=== PATIENT | male | born 1995 ===

== ENCOUNTER 2017-04-21 16:56 | Emergency (ER) | payer OTHER ==
[2017-04-21 17:11] VITALS: BP 124/70; PULSE 64; RESP 18; TEMP 98.1; O2SAT 97
--- NOTE | 2017-04-21 17:51 | ED PDOC ---
HPI: CCC, URI, Sore Throat Time Seen by Provider: 04/21/17 17:13 Chief Complaint (Nursing): Flu-like Symptoms Chief Complaint (Provider): Flu-like Symptoms History Per: Patient History/Exam Limitations: no limitations Onset/Duration Of Symptoms: Days (x3) Current Symptoms Are (Timing): Still Present Associated Symptoms: Cough Additional Complaint(s): Edward Pineda is a 21-year-old male who presents to the emergency department complaining of a headache with associated body aches and subjective fever, for 3 days. Patient also reports having a dry cough. He has been taking Acetaminophen without relief. Patient denies any associated sore throat, nausea , vomiting, or diarrhea. PMD: None Past Medical History Reviewed: Historical Data, Nursing Documentation, Vital Signs Vital Signs: Last Vital Signs Temp 98.1 F 04/21/17 17:08 Pulse 64 04/21/17 17:08 Resp 18 04/21/17 17:08 BP 124/70 04/21/17 17:08 Pulse Ox 97 04/21/17 18:54 - Medical History PMH: No Chronic Diseases - Family History Family History: States: Unknown Family Hx - Social History Current smoker - smoking cessation education provided: No Alcohol: None Drugs: Denies - Home Medications Home Medications: Ambulatory Orders Medication Instructions Recorded Albuterol HFA [Ventolin HFA 90 1 puff IH ASDIR #1 unit 04/21/17 mcg/actuation (8 g)] Benzonatate 200 mg PO TID PRN #20 capsule 04/21/17 Levofloxacin [Levaquin] 500 mg PO DAILY #7 tablet 04/21/17 - Allergies Allergies/Adverse Reactions: Allergies Allergy/AdvReac Type Severity Reaction Status Date / Time No Known Allergies Allergy Verified 08/30/15 22:23 Review of Systems ROS Statement: Except As Marked, All Systems Reviewed And Found Negative Constitutional: Positive for: Fever (subjective), Other (body aches) ENT: Negative for: Nose Congestion, Throat Pain Respiratory: Positive for: Cough (dry). Negative for: Sputum Gastrointestinal: Negative for: Nausea, Vomiting, Abdominal Pain, Diarrhea Neurological: Positive for: Headache Physical Exam - Reviewed Nursing Documentation Reviewed: Yes Vital Signs Reviewed: Yes - Physical Exam Appears: Positive for: Non-toxic, No Acute Distress Head Exam: Positive for: ATRAUMATIC, NORMAL INSPECTION, NORMOCEPHALIC Skin: Positive for: Normal Color Eye Exam: Positive for: Normal appearance ENT: Positive for: Tonsillar Swelling. Negative for: Pharyngeal Erythema, Tonsillar Exudate Neck: Positive for: Normal, Supple Cardiovascular/Chest: Positive for: Regular Rate, Rhythm Respiratory: Positive for: Normal Breath Sounds. Negative for: Accessory Muscle Use, Wheezing, Respiratory Distress Gastrointestinal/Abdominal: Positive for: Normal Exam, Soft. Negative for: Tenderness Back: Positive for: Normal Inspection. Negative for: Vertebral Tenderness Neurologic/Psych: Positive for: Alert, Oriented - ECG O2 Sat by Pulse Oximetry: 97 (RA) Pulse Ox Interpretation: Normal - Other Rad CXR X-Ray: Interpreted by Me, Viewed By Me X-Ray Interpretation: VIVIANA infiltrate Medical Decision Making Medical Decision Making: Initial Impression: 21 year old male with flu-like symptoms Time: 17:51 Initial Plan: --Tylenol 975 mg PO --Motrin 600 mg PO --Throat culture --Influenza A B --Rapid strep test --Will obtain chest x-ray PA reviewed labs, flu and strep are negative. Chest x-ray demonstrates left upper lobe infiltrate. Patient given prescriptions for Levaquin, Tessalon Perles and Ventolin inhaler. He was instructed to continue with Tylenol and Motrin for fever control and body aches. Advise follow-up in 1-2 days in clinic or return to ED any time if acutely worse. Scribe Attestation: Documented by Maryann Arzola, acting as a scribe for Kathya Uribe PA-C Provider Scribe Attestation: All medical record entries made by the Scribe were at my direction and personally dictated by me. I have reviewed the chart and agree that the record accurately reflects my personal performance of the history, physical exam, medical decision making, and the department course for this patient. I have also personally directed, reviewed, and agree with the discharge instructions and disposition. Disposition - Clinical Impression Clinical Impression: Pneumonia - Patient ED Disposition Is Patient to be Admitted: No Counseled Patient/Family Regarding: Studies Performed, Diagnosis, Need For Followup, Rx Given - Disposition Referrals: [facility] [Outside] Disposition: Routine/Home Disposition Time: 19:19 Condition: STABLE Additional Instructions: Take [id number] Tylenol and Motrin for body aches and fever. Drink plenty of fluids. Take prescription medications as directed. Follow-up in one to 2 days with clinic or return to emergency department any time if acutely worse. Prescriptions: Albuterol HFA [Ventolin HFA 90 mcg/actuation (8 g)] 1 puff IH ASDIR #1 unit Benzonatate 200 mg PO TID PRN #20 capsule PRN Reason: Cough Levofloxacin [Levaquin] 500 mg PO DAILY #7 tablet Instructions: Community Acquired Pneumonia (ED) Forms: [facility] (Setswana), Meludia (Irish), [facility] ED School /Work Excuse Print Language: KISWAHILI
--- NOTE | 2017-04-22 13:14 | RAD ---
HISTORY: cough COMPARISON: 08/31/2015 TECHNIQUE: Chest PA and lateral FINDINGS: LUNGS: New left suprahilar/paramediastinal opacity. Possible focal infiltrate. Followup to clearing to exclude underlying neoplasm. No consolidation elsewhere. PLEURA: No significant pleural effusion identified. No pneumothorax apparent. CARDIOVASCULAR: Normal. OSSEOUS STRUCTURES: No significant abnormalities. VISUALIZED UPPER ABDOMEN: Normal. OTHER FINDINGS: None. IMPRESSION: New left suprahilar opacity. Possible pneumonia. Followup to clearing advised.
== END 2017-04-21 19:55 | disposition home or self-care (01) ==
LOC: H.ER 16:56
DX: J18.9 Pneumonia, unspecified organism (principal)